=== PATIENT | male | born 1995 | race Caucasian/White ===

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

== ENCOUNTER 2017-04-03 17:40 | Emergency (ER) | payer OTHER ==
[2017-04-03 18:16] VITALS: BP 136/81
--- NOTE | 2017-04-03 18:33 | UC ---
Respiratory Complaint HPI - HPI Summary HPI Summary: 22 y/o male presents to the urgent care c/o fever, body aches, nausea and mild sore throat since yesterday. This morning he had a fever on 102F and the took Ibuprofen 800mg PO which alleviated his symptoms. Pt denies cough, nasal congestion, SOB, chest pain, abdominal pain, N/V/D, Hx of tick bites, or rash. - History of Current Complaint Chief Complaint: UCRespiratory Stated Complaint: FEVER, ACHES, NAUSEA Time Seen by Provider: 04/03/17 18:16 Hx Obtained From: Patient Onset/Duration: Gradual Onset, Lasting Days - 1 day, Still Present Timing: Constant Severity Initially: Mild Severity Currently: Moderate Pain Intensity: 6 Pain Scale Used: 0-10 Numeric Alleviating Factors: OTC Meds Associated Signs And Symptoms: Positive: Fever, Chills - Risk Factors Pulmonary Embolism Risk Factors: Negative Cardiac Risk Factors: Negative Pseudomonas Risk Factors: Negative Tuberculosis Risk Factors: Negative - Allergies/Home Medications Allergies/Adverse Reactions: Allergies Allergy/AdvReac Type Severity Reaction Status Date / Time No Known Allergies Allergy Verified 04/03/17 18:16 PMH/Surg Hx/FS Hx/Imm Hx Previously Healthy: Yes - Pt denies PMHX Other History Of: Negative For: Anticoagulant Therapy - Surgical History Surgical History: None Surgery Procedure, Year, and Place: appy as child - Family History Known Family History: Positive: Hypertension - Social History Occupation: Student Lives: Dormitory/Roommates Alcohol Use: None Substance Use Type: None Smoking Status (MU): Never Smoked Tobacco - Immunization History Vaccination Up to Date: Yes Review of Systems Constitutional: Fever, Chills Skin: Negative Eyes: Negative ENT: Negative, Sore Throat Respiratory: Negative Cardiovascular: Negative Gastrointestinal: Nausea Genitourinary: Negative Motor: Negative Neurovascular: Negative Musculoskeletal: Negative Neurological: Negative Psychological: Negative Is Patient Immunocompromised?: No All Other Systems Reviewed And Are Negative: Yes Physical Exam Triage Information Reviewed: Yes Vital Signs: Initial Vital Signs Temp 98.7 F 04/03/17 18:12 Pulse 90 04/03/17 18:12 Resp 15 04/03/17 18:12 BP 136/81 04/03/17 18:12 Pulse Ox 96 04/03/17 18:12 - Additional Comments VITAL SIGNS: Reviewed. GENERAL: Patient is a well developed and nourished male who is sitting comfortable in the examining table. Patient is not in any acute respiratory distress. HEAD AND FACE: No signs of trauma. No ecchymosis, hematomas or skull depressions. No sinus tenderness. EYES: PERRLA, EOMI x 2, No injected conjunctiva, no nystagmus. No photophobia. EARS: Hearing grossly intact. Ear canals and tympanic membranes are within normal limits. MOUTH: Positive pharynx with erythema, no exudates, mild palatal petechiae. mild B/L tonsillar enlargement with no exudate. Uvula in midline. NECK: Supple, trachea is midline, Positive anterior cervical lymphadenopathy, no JVD, no carotid bruit, no c-spine tenderness, neck with full ROM. No meningeal signs, no Kernig's or brudzinskis signs. CHEST: Symmetric, no tenderness at palpation LUNGS: Clear to auscultation bilaterally. No wheezing or crackles. CVS: Regular rate and rhythm, S1 and S2 present, no murmurs or gallops appreciated. ABDOMEN: Soft, non-tender. No signs of distention. No rebound no guarding, and no masses palpated. Bowel sounds are normal. EXTREMITIES: FROM in all major joints, no edema, no cyanosis or clubbing. NEURO: Alert and oriented x 3. No acute neurological deficits. Speech is normal and follows commands. SKIN: Dry and warm UC Diagnostic Evaluation - Laboratory O2 Sat by Pulse Oximetry: 96 Respiratory Course/Dx - Course Course Of Treatment: 22 y/o male presents to the urgent care c/o fever, body aches, nausea and mild sore throat since yesterday. This morning he had a fever on 102F and the took Ibuprofen 800mg PO which alleviated his symptoms. Pt denies cough, nasal congestion, SOB, chest pain, abdominal pain, N/V/D, Hx of tick bites, or rash. Hx obtained. Pt with pharyngitis on examination. Rapid strep ordered, result: negative. Influenza A&B oredered, result: negative. Pt Rx ibuprofen PO to alleviates symptoms of pain and swelling. Advised on hand washing to avoid spreading. Pt advised to rest, eat well and avoid strenuous exercise. If symptoms do not improve or worsen advised to return to the urgent care or f/u with her PCP for further evaluation and treatment. Pt understood and agreed - Differential Dx/Diagnosis Differential Diagnosis/HQI/PQRI: Bronchitis, Influenza, Laryngitis, Sinusitis, Other - pharyngitis Provider Diagnoses: 1- Viral pharyngitis Discharge - Discharge Plan Condition: Stable Disposition: HOME Prescriptions: Ibuprofen TAB* [Motrin TAB* 800 MG] 800 mg PO Q6H #20 tab Patient Education Materials: Pharyngitis (ED) Forms: *Work Release Referrals: YUNIEL MendozaN [Primary Care Provider] - If Needed Additional Instructions: 1-Please take ibuprofen PO q6-8hrs prn as instructed after meals to alleviate pain and swelling. Increase fluid intake, eat well, rest and avoid strenuous exercise 2-If symptoms do not improve or worsen please return to the urgent care or f/u with your PCP for further evaluation and treatment.
== END 2017-04-03 18:55 | disposition home or self-care (01) ==
LOC: UCCORT 17:40
DX: J02.8 Acute pharyngitis due to other specified organisms (principal)
CPT/HCPCS: 87502; 87651; 99211; G0463